=== PATIENT | female | born 1975 | race Caucasian/White ===

== ENCOUNTER → 2017-12-20 | Outpatient (CLI) | payer BC ==
[2017-12-20 17:17] LABS: T4, Free (Free Thyroxine) 1.56 ng/dL (0.78-2.19)
[2017-12-21 00:29] LABS: Thyroid Peroxidase Antibodies 34.7 U/mL (0.0-60.0); Vitamin D 25 Hydroxy 41.5 ng/mL (30.0-100.0)
== END | disposition home or self-care (01) ==
LOC: LABWHC1 16:21
PROVIDERS: ATTEND Otolaryngology
DX: R53.83 Other fatigue (principal); E05.90 Thyrotoxicosis, unspecified without thyrotoxic crisis or storm
CPT/HCPCS: 36415; 82306; 82607; 84439; 84443; 84480; 86376

== ENCOUNTER → 2018-01-07 | Outpatient (CLI) | payer BC ==
[2018-01-07 11:19] LABS: HCT 41.6 % (34.0-46.0); HGB 13.9 gm/dL (11.4-16.0); MCH 30.8 pg (25.0-35.0); MCHC 33.4 g/dL (31.0-37.0); MCV 92.2 fL (80.0-100.0); Mean Platelet Volume 6.8; Platelet Count 226 k/uL (150-450); RBC 4.51 m/uL (3.80-5.40); RDW 12.2 % (11.5-15.5); WBC 5.8 k/uL (3.8-10.6)
[2018-01-07 11:37] LABS: ALT 21 U/L (9-52); AST 21 U/L (14-36); Albumin 4.1 g/dL (3.5-5.0); Alkaline Phosphatase 46 U/L (38-126); Anion Gap 11 mmol/L; Blood Urea Nitrogen 26 mg/dL (7-17); Calcium 9.6 mg/dL (8.4-10.2); Carbon Dioxide 28 mmol/L (22-30); Chloride 103 mmol/L (98-107); Glucose 88 mg/dL (74-99); Potassium 4.1 mmol/L (3.5-5.1); Sodium 142 mmol/L (137-145); Total Bilirubin 0.3 mg/dL (0.2-1.3); Total Protein 6.8 g/dL (6.3-8.2)
[2018-01-07 11:54] LABS: T4, Free (Free Thyroxine) 1.42 ng/dL (0.78-2.19)
[2018-01-07 18:47] LABS: ACTH 21.5 pg/mL (0.00-45.99)
== END | disposition home or self-care (01) ==
LOC: LABWHC1 10:36
PROVIDERS: ATTEND Internal Medicine Endocrinology, Diabetes & Metabolism
DX: E05.90 Thyrotoxicosis, unspecified without thyrotoxic crisis or storm (principal); R53.83 Other fatigue; R68.82 Decreased libido
CPT/HCPCS: 36415; 80053; 82024; 82533; 84146; 84403; 84439; 84443; 84445; 84481; 85027

== ENCOUNTER → 2018-01-22 | Outpatient (CLI) | payer BC ==
--- NOTE | 2018-01-23 10:42 | NM ---
EXAMINATION TYPE: NM thyroid image w uptake DATE OF EXAM: 01/23/2018 COMPARISON: NONE HISTORY: Thyrotoxicosis per order. Change in hair, nails, and weight with palpitations and fatigue pe r patient. TECHNIQUE: Thyroid iodine uptake is calculated and images performed after the oral administration of 291 uCi I-123 uCi 1-123 Capsule. FINDINGS: There is normal distribution of activity throughout the gland. The 4 hour iodine uptake is calculated at 13% (normal range 8-14%). The 24-hour iodine uptake is calculated at 31% (normal range 15-35%). IMPRESSION: Normal thyroid scan and uptake.
== END | disposition home or self-care (01) ==
LOC: RADNMMAIN 09:46
PROVIDERS: ATTEND Internal Medicine Endocrinology, Diabetes & Metabolism
DX: E05.90 Thyrotoxicosis, unspecified without thyrotoxic crisis or storm (principal)
CPT/HCPCS: 78014; A9516